=== PATIENT | male | born 1980 | race American Indian/Alaskan Native ===

== ENCOUNTER 2021-12-02 04:25 | Emergency (ER) | payer SELFPAY ==
--- NOTE | 2021-12-02 05:29 | Emergency Department Report ---
ED CPR HPI - General Chief Complaint: Cardiac Arrest/CPR Stated Complaint: CARDIAC ARREST Time Seen by Provider: 12/02/21 05:13 Source: EMS Mode of arrival: Stretcher Limitations: Altered Mental Status, Physical Limitation - History of Present Illness Initial Comments: 41-year-old male with a past medical history obesity hypertension presents to the hospital cardiopulmonary arrest. Last seen 2 hours prior to call. He missed his pressure 3:27 AM and arrived at 3:37 AM. Upon their arrival patient was in asystole with an Accu-Chek of [id number]. Patient is intubated with a Itz airway and received epinephrine x3 prior to arrival. Patient arrived at 4:21 AM and remains in asystole despite resuscitation efforts. Resuscitation efforts continued upon arrival MD Complaint: found unresponsive ED Review of Systems ROS: Stated complaint: CARDIAC ARREST Other details as noted in HPI Comment: Unobtainable due to pts medical conditions ED Physical Exam - Other Other exam information: General: Unresponsive Head: Atraumatic Eyes: Pupils fixed with diet ENT: Orally intubated Itz airway Neck: Normal appearance, no midline tenderness Chest: Apneic, breath sounds with bag CV: Pulseless, chest compressions and prior Abdomen: Soft Extremity: Normal inspection Neuro: GCS equals 3 Psych: Unresponsive Skin: Warm to touch ED Medical Decision Making - Medical Decision Making 41-year-old male presents to the hospital cardiopulmonary arrest. Patient was in asystole with last known well time 2 hours prior. Patient was in asystole x1 hour prior to ED arrival. Resuscitation efforts continued with additional dose of epinephrine and sodium bicarb. Patient remained in asystole with time of of 4:29 AM Patient's family in the ED and informed of his Critical Care Time: Yes Critical care time in (mins) excluding proc time.: 15 Critical care attestation.: If time is entered above; I have spent that time in minutes in the direct care of this critically ill patient, excluding procedure time. ED Disposition Clinical Impression: Cardiopulmonary arrest Disposition: 20 Is pt being admited?: No Does the pt Need Aspirin: No Condition: Serious Time of Disposition: 05:34
[2021-12-02] MEDS ORDERED: EPINEPHrine 1 MG/10 ML SYRINGE ONE (09:18)
[2021-12-02] MEDS ORDERED: SODIUM BICARB 8.4% 50 MEQ/50 ML SYRINGE IV ONE (09:18)
== END 2021-12-02 08:15 ==
LOC: ED 04:25
DX: I46.9 Cardiac arrest, cause unspecified (principal)
CPT/HCPCS: 92950; 99285; J0171; J3490